=== PATIENT | female | born 2000 | race Caucasian/White ===

== ENCOUNTER 2019-12-11 20:39 | Observation (INO) | payer OTHER ==
[~2019-12-11] VITALS: Ht 162.6 cm; Wt 82.6 kg
== END 2019-12-11 22:05 | disposition home or self-care (01) ==
LOC: SPU 20:39
PROVIDERS: ADMIT Obstetrics & Gynecology; ATTEND Obstetrics & Gynecology
DX: O62.9 Abnormality of forces of labor, unspecified (principal); Z3A.39 39 weeks gestation of pregnancy
CPT/HCPCS: 81002; G0378

== ENCOUNTER 2019-12-12 16:40 | Inpatient (IN) | payer OTHER ==
[~2019-12-12] VITALS: Ht 162.6 cm; Wt 82.6 kg
[2019-12-12] MEDS ORDERED: OXYTOCIN/0.9 % SODIUM CHLORIDE 1,000 ML IV SCH (16:56)
[2019-12-12] MEDS ORDERED: LR 1,000 ML IV SCH (16:56)
[2019-12-12] MEDS ORDERED: LR 1,000 ML IV ONE (16:56)
[2019-12-12] MEDS ORDERED: AMPICILLIN SODIUM 2 GM VIAL ONE (17:09)
[2019-12-12 17:21] LABS: BASOPHILS % (AUTO) 0.2 % (0.0-2.0); EOSINOPHILS % (AUTO) 0.1 % (0.0-4.0); HEMATOCRIT 37.7 % (36-48); HEMOGLOBIN 12.5 g/dL (12.0-16.0); LYMPHOCYTES % (AUTO) 7.3 % (20.5-51.5); MEAN CORPUSCULAR HEMOGLOBIN 29 pg (27-31); MEAN CORPUSCULAR HGB CONC 33 % (32-36); MEAN CORPUSCULAR VOLUME 88 fL (79.0-98.0); MONOCYTES # (AUTO) 0.8 K/uL (0.0-1.0); MONOCYTES % (AUTO) 5.8 % (1.7-9.3); NEUTROPHILS # (AUTO) 12.2 K/uL (1.8-7.7); NEUTROPHILS % (AUTO) 86.6 % (40.0-70.0); PLATELET COUNT (AUTO) 188 K/uL (130-430); RED BLOOD CELL COUNT(AUTO) 4.31 MIL/uL (4.2-6.2); RED CELL DISTRIBUTION WIDTH 14.9 % (9.0-15.0); WHITE BLOOD COUNT (AUTO) 14.1 K/uL (4.8-10.8)
[2019-12-12] MEDS ORDERED: AMPICILLIN SODIUM 2 GM in NS 100 ML IV ONE (17:30)
[2019-12-12] MEDS ORDERED: fentaNYL CITRATE/PF 100 MCG/2 ML AMP ONE (17:58)
[2019-12-12] MEDS ORDERED: ROPIVACAINE HCL/PF 0.2% 200 ML ONE (17:58)
[2019-12-12] MEDS ORDERED: LR 500 ML IV ONE (18:17)
[2019-12-12] MEDS ORDERED: FENT2mCg/mL-ROPIVA0.2%/NS EPID 200 ML EP SCH (18:30)
[2019-12-12 19:22] VITALS: BP_SYST 130
[2019-12-12] MEDS ORDERED: TEMAZEPAM 15 MG CAPSULE PO PRN (21:00)
[2019-12-12] MEDS ORDERED: AMPICILLIN SODIUM 1 GM in NS 50 ML IV SCH (21:30)
[2019-12-12] MEDS ORDERED: OXYTOCIN/0.9 % SODIUM CHLORIDE 1,000 ML IV ONE (22:01)
[2019-12-12] MEDS ORDERED: DOCUSATE SODIUM 100 MG CAPSULE PO PRN (22:15)
[2019-12-12] MEDS ORDERED: ANUSOL 1 EA SUPP.RECT (PREPARATION H) RC PRN (22:15)
[2019-12-12] MEDS ORDERED: LANOLIN 7 GM OINT. TP PRN (22:15)
[2019-12-12] MEDS ORDERED: OXYCODONE/ACETAMINOPHEN 5-325 TABLET PO PRN ×2 (22:15)
[2019-12-12] MEDS ORDERED: HYDROCORTISONE 0.5%, 28.35 GM TOPICAL CREAM TP PRN (22:15)
[2019-12-12] MEDS ORDERED: SENNOSIDES/DOCUSATE SODIUM 1 TAB TABLET(SENOKOT-S) PO PRN (22:15)
[2019-12-12] MEDS ORDERED: METHYLERGONOVINE MALEATE 0.2 MG TABLET PO PRN (22:15)
[2019-12-12] MEDS ORDERED: WITCH HAZEL LEAF 1 MED.PAD MED.PAD TP PRN (22:15)
[2019-12-12] MEDS ORDERED: DERMOPLAST SPRAY TP PRN (22:15)
[2019-12-12] MEDS: IBUPROFEN 800 MG TABLET PO PRN (22:47)
[2019-12-13] MEDS: IBUPROFEN 800 MG TABLET PO PRN ×4 (05:07→23:58)
[2019-12-13 07:16] LABS: HEMATOCRIT 37.3 % (36-48); HEMOGLOBIN 12.5 g/dL (12.0-16.0)
[2019-12-13] MEDS ORDERED: LIDOCAINE PF 1% 30ML(POUR BTL) INJ ONE (11:41)
[2019-12-13] MEDS ORDERED: LIGHT MINERAL OIL 10 ML VIAL MC ONE (11:41)
[2019-12-14] MEDS: IBUPROFEN 800 MG TABLET PO PRN ×2 (06:39→12:14)
== END 2019-12-14 17:53 | disposition home or self-care (01) | DRG 560 ==
LOC: OBSVTOIN 16:40 → SPU 16:40
PROVIDERS: ADMIT Obstetrics & Gynecology; ATTEND Obstetrics & Gynecology
PROC: 10E0XZZ Delivery of Products of Conception, External Approach (ICD-10-PCS; principal; 2019-12-12)
PROC: 3E0R3BZ Introduction of Anesthetic Agent into Spinal Canal, Percutaneous Approach (ICD-10-PCS; 2019-12-12)
PROC: 00HU33Z Insertion of Infusion Device into Spinal Canal, Percutaneous Approach (ICD-10-PCS; 2019-12-12)
PROC: 0UQMXZZ Repair Vulva, External Approach (ICD-10-PCS; 2019-12-12)
DX: O71.82 Other specified trauma to perineum and vulva (principal); Z37.0 Single live birth; Z3A.37 37 weeks gestation of pregnancy
CPT/HCPCS: 36415; 85018-TC; 85025; 86592; 86886; 86900; 86901; J0290; J2001; J2590; J3010; J7120